=== PATIENT | female | born 1975 | race Caucasian/White ===

== ENCOUNTER → 2021-10-25 | Outpatient (CLI) | payer MEDICARE, OTHER ==
[~2021-10-25] MED LIST: BUSPAR 10MG10 MG PO; CYMBALTA60 MG PO; ELAVIL 50 MG TA50 MG PO; GABAPENTIN800 MG PO; TEMAZEPAM15 MG PO; TRAZODONE HCL100 MG PO; ZANAFLEX4 MG PO; ZOFRAN4 MG PO
== END ==
LOC: KOH-I 10:07
DX: M79.671 Pain in right foot (principal); M79.672 Pain in left foot; M19.072 Primary osteoarthritis, left ankle and foot; M19.071 Primary osteoarthritis, right ankle and foot
CPT/HCPCS: 73630

== ENCOUNTER → 2021-10-27 | Outpatient (CLI) | payer MEDICARE, OTHER | LOC: MAMO 10-06 14:30 | DX: Z12.31 Encounter for screening mammogram for malignant neoplasm of breast (principal) | CPT/HCPCS: 77063; 77067 ==

== ENCOUNTER → 2021-10-31 | Outpatient (CLI) | payer MEDICARE, OTHER | LOC: EXRD 08:00 | DX: I73.9 Peripheral vascular disease, unspecified (principal); M71.22 Synovial cyst of popliteal space [Baker], left knee | CPT/HCPCS: 93925 ==